=== PATIENT | female | born 1950 | race African-American/Black ===

== ENCOUNTER 2017-01-22 13:03 | Day surgery (SDC) | payer OTHER ==
[~2017-01-22] VITALS: Ht 157.5 cm; Wt 82.2 kg
[~2017-01-22 13:03] MED LIST: CELE100C85 PO; HYDR25TA6 PO; MIRA50TA PO; OMEP40CA3 PO; TOLT4CAP PO
[2017-01-22 13:38] VITALS: Ht 157.5 cm; Wt 82.2 kg
[2017-01-22] MEDS ORDERED: LIDOCAINE 2% (SDV) 5 ML INJ ONE (14:03)
[2017-01-22] MEDS ORDERED: PROPOFOL 40 ML ONE (14:03)
[2017-01-22 14:08] VITALS: BP 133/72; PULSE 82; RESP 11
--- NOTE | 2017-01-22 15:03 | OPR ---
DATE OF OPERATION: 01/22/2017 TITLE OF OPERATION: Colonoscopy ANESTHESIOLOGIST: Dr. Ceja SURGEON: Tyrell Gray MD ANESTHESIA: MAC. POSITION: Left lateral decubitus. INDICATION: This is a 66-year-old woman who came into the office last year with blood per rectum. The patient had not had a colonoscopy in approximately 7 years. I discussed the risks and benefits of a colonoscopy, possibly biopsy including bleeding, infection, damage to surrounding structures, perforation. The patient was cleared by her medical doctor and design engineering technician. We then went on to the GI suite. DESCRIPTION OF PROCEDURE: After obtaining consent, the patient was brought to the GI suite. After induction of anesthesia, the patient was gently placed in left lateral decubitus position. The pressure points were carefully padded. I began with a digital rectal exam which was unremarkable. I then placed a lubricated Olympus colonoscope into the patient's anus and carefully navigated to the patient's cecum. The colon was tortuous and the prep was satisfactory. I identified the cecum by the ileocecal valve and appendiceal orifice. I then slowly retracted the scope through the entirety of the colon. There was no pathology except for some engorged internal hemorrhoids. The scope was then removed and the procedure was terminated. The patient tolerated the procedure well. The patient was transported to the PACU in good condition. Dictated By: TYRELL HYDE/AVA Conf#: [id number] DID#: [id number] CC:Gino JUAN
[2017-01-22 15:32] VITALS: BP 119/69; RESP 20
== END 2017-01-22 16:37 | disposition home or self-care (01) ==
LOC: GIL 13:03
PROVIDERS: ATTEND Surgery
DX: Z12.11 Encounter for screening for malignant neoplasm of colon (principal); I10 Essential (primary) hypertension

== ENCOUNTER 2017-12-23 11:00 | Inpatient (IN) | payer OTHER ==
[~2017-12-23] VITALS: Ht 157.5 cm; Wt 84.2 kg
[2018-07-10] MEDS ORDERED: HYDR25TA6 PO (12:02)
[2018-07-10] MEDS ORDERED: ESOM40CA PO (12:03)
[2018-07-10] MEDS ORDERED: CELE200C PO (12:03)
[2018-07-10] MEDS ORDERED: MIRA50TA PO (12:03)
[2018-07-10] MEDS ORDERED: SIMV20TA PO (12:04)
[2018-07-10] MEDS ORDERED: LORA10TA3 PO (12:04)
[2018-07-10] MEDS ORDERED: MONT10TA24 PO (12:05)
[2018-07-10] MEDS ORDERED: PREG150C PO (12:05)
[2018-10-27 14:26] VITALS: BMI 31.0
[2018-10-29] VITALS (34 sets, daily range): BP systolic 97–142; BP diastolic 52–83; PULSE 52–94; RESP 10–30; Ht 157.5 cm; Wt 84.2 kg
[2018-10-29] MEDS ORDERED: CEFAZOLIN 2 GM/50 ML (PMX) 50 ML IVPB SCH (06:00)
--- NOTE | 2018-10-29 06:30 | PREAC ---
Date/Time of Note Date/Time of Note DATE: 10/29/18 TIME: 06:27 Anesthesia Eval and Record Evaluation Time Pre-Procedure Interview DATE: 10/29/18 TIME: 06:27 Age 68 Sex female NPO: 8 hrs Preoperative diagnosis lumbar stenosis Planned procedure L4 to S1 instrumented fusion Past Medical History Past Medical History: Includes Cardio: HTN, Arrythmia (pvc's) GI: GERD, Obesity Surgery & Anesthesia Issues No known issue Meds Anticoagulation: No Beta Higinio within 24 hr: No Reason Beta Higinio not given: Pt. not on B-Higinio Reported Medications Montelukast Sodium* (Montelukast Sodium*) 10 Mg Tablet, 10 MG PO QHS, #30 TAB 07/10/18 Pregabalin* (Lyrica*) 150 Mg Capsule, 200 MG PO BID, CAP 07/10/18 Loratadine* (Loratadine*) 10 Mg Tablet, 10 MG PO DAILY, #30 TAB 07/10/18 Simvastatin* (Zocor*) 20 Mg Tablet, 20 MG PO QHS, #30 TAB 07/10/18 Celecoxib* (Celebrex*) 200 Mg Capsule, 200 MG PO DAILY, CAP 07/10/18 Mirabegron (Myrbetriq) 50 Mg Tab.er.24h, 50 MG PO DAILY, TAB 07/10/18 Esomeprazole Mag Trihydrate (Nexium) 40 Mg Capsule.dr, 40 MG PO DAILY, #30 CAP 07/10/18 Hydrochlorothiazide* (Hydrochlorothiazide*) 25 Mg Tab, 25 MG PO DAILY, #30 TAB 07/10/18 Current Medications Cefazolin Sodium/ Dextrose 50 ml @ 100 mls/hr ONCE IVPB ; Start 10/29/18 at 06:00; Stop 10/29/18 at 14:00 Meds reviewed: Yes Allergies Coded Allergies: No Known Allergy (Unverified , 07/10/18) Allergies Reviewed: Yes Labs/Studies Labs Reviewed: Reviewed by anesthesiologist Blood Bank Test 10/28/18 16:55 Antibody Screen NEGATIVE Blood Product Summary Counts Blood Type O POSITIVE Crossmatch Red Blood Cells test: N/A Pre-procedure Exam Airway: Adequate mouth opening, Adequate thyromental dist Mallampati: Mallampati II Teeth: Normal Lung: Normal Heart: Normal ASA Physical Status ASA physical status: 2 Emergency: None Planned Anesthetic General/MAC: ETT Planned Pain Management Parenteral pain med Pre-operative Attestations Prior to commencing anesthesia and surgery, the patient was re-evaluated, there was verification of: *The patient's identity *The results of appropriate recent lab work and preoperative vital signs *The above evaluation not changing prior to induction *Anesthetic plan, risk benefits, alternative and complications discussed with patient/family; questions answered; patient/family understands, accepts and wishes to proceed. AMANUEL BROWNE Oct 29, 2018 06:30
[2018-10-29] MEDS ORDERED: GELATIN SIZE 100 SPONGE ONE (06:47)
[2018-10-29] MEDS ORDERED: BUPIVACAINE 0.25% (MPF) 30 ML INJ ONE (06:47)
[2018-10-29] MEDS ORDERED: CEFAZOLIN 1 GM INJ ONE (06:48)
[2018-10-29] MEDS ORDERED: THROMBIN 5000 UNIT VIAL ONE (06:48)
[2018-10-29] MEDS ORDERED: HEPARIN 1000 UNITS/ML 10 ML INJ ONE (06:53)
--- NOTE | 2018-10-29 06:53 | HPN ---
Date/Time of Note Date/Time of Note DATE: 10/29/18 TIME: 06:52 Interval H&P Admission Note Pt. seen H&P reviewed: No system changes LIOR FREEDMAN MD Oct 29, 2018 06:53
[2018-10-29] MEDS ORDERED: PROPOFOL 20 ML ONE (06:55)
[2018-10-29] MEDS ORDERED: ROCURONIUM 50 MG INJ ONE (06:56)
[2018-10-29] MEDS ORDERED: DEXAMETHASONE 4 MG/ML 5 ML INJ ONE (07:05)
[2018-10-29] MEDS ORDERED: PHENYLephrine (100 MCG/ML) 10ML SYG ONE (07:06)
[2018-10-29] MEDS ORDERED: morphine 10 MG INJ ONE (07:41)
[2018-10-29] MEDS ORDERED: GLYCOPYRROLATE 0.4 MG INJ ONE (10:55)
[2018-10-29] MEDS ORDERED: NEOSTIGMINE 3 MG/3 ML SYRINGE ONE (10:55)
[2018-10-29] MEDS ORDERED: KETOROLAC 30 MG INJ IV PRN ×2 (11:00→11:30)
[2018-10-29] MEDS ORDERED: DIPHENHYDRAMINE 50 MG INJ IV PRN ×2 (11:00→11:30)
[2018-10-29] MEDS ORDERED: NALOXONE (0.4 MG/ML) INJ IV PRN ×2 (11:00→12:00)
[2018-10-29] MEDS ORDERED: ONDANSETRON 4 MG INJ IV PRN ×3 (11:00→12:00)
[2018-10-29] MEDS ORDERED: ZOLPIDEM 5 MG TAB PO PRN ×2 (11:00→12:00)
[2018-10-29] MEDS ORDERED: HYDROmorphONE 0.2 MG/ML PCA IV SCH (11:00)
--- NOTE | 2018-10-29 11:25 | PAC ---
Date/Time of Note Date/Time of Note DATE: 10/29/18 TIME: 11:25 Post-Anesthesia Notes Post-Anesthesia Note Last documented vital signs Vital Signs Date Temp Pulse Resp B/P (MAP) Pulse Ox O2 O2 Flow FiO2 Time Delivery Rate 10/29/18 98.5 87 18 129/81 97 Room Air 1125 (97) Activity: WNL Respiratory function: WNL Cardiovascular function: WNL Mental status: Baseline Pain reasonably controlled: Yes Hydration appropriate: Yes Nausea/Vomiting absent: Yes AMANUEL BROWNE Oct 29, 2018 11:25
[2018-10-29] MEDS ORDERED: ONDANSETRON 4 MG INJ ONE (11:27)
[2018-10-29] MEDS ORDERED: HYDROmorphONE 1 MG/5 ML IV SYRINGE IV ONE (11:28)
[2018-10-29] MEDS ORDERED: METOCLOPRAMIDE 10 MG INJ IV PRN (11:30)
[2018-10-29] MEDS ORDERED: FENTAnyl 50 MCG/ML VIAL IV PRN ×3 (11:30)
[2018-10-29] MEDS ORDERED: LABETALOL HCL 20MG INJ IV PRN (11:30)
[2018-10-29] MEDS ORDERED: MEPERIDINE 25 MG INJ IV PRN (11:30)
[2018-10-29] MEDS ORDERED: ALBUTEROL 0.083% (NEB) 2.5 MG/3 ML AMP HHN PRN (11:30)
[2018-10-29] MEDS ORDERED: MIDAZOLAM 1 MG/ML 2 ML INJ IV PRN (11:30)
[2018-10-29] MEDS ORDERED: HYDROmorphONE 1 MG/5 ML IV SYRINGE IV PRN ×3 (11:30)
[2018-10-29] MEDS ORDERED: hydrALAzine 20 MG INJ IV PRN (11:30)
[2018-10-29] MEDS ORDERED: EPHEDrine SULFATE 50 MG/5 ML SYG IV PRN (11:30)
[2018-10-29] MEDS ORDERED: FENTAnyl 50 MCG/ML VIAL ONE (11:39)
[2018-10-29] MEDS ORDERED: HYDROmorphONE 0.2 MG/ML PCA ONE (11:39)
[2018-10-29] MEDS: DEXTROSE 5%-0.45% NACL 1,000 ML IV SCH ×2 (11:45→18:50)
--- NOTE | 2018-10-29 11:56 | SIPON ---
Date/Time of Note Date/Time of Note DATE: 10/29/18 TIME: 11:49 Operative Report Preoperative Diagnosis Severe spinal stenosis at L4 and L5 Spondylolisthesis at L5-S1 Postoperative Diagnosis Same Operation/Procedure Performed Central decompressive laminectomy at L4 Central decompressive laminectomy at L5 Medial facetectomy and foraminotomy L4-5 and L5-S1 bilaterally Cosmetic wound closure (12 cm) Multiple lateral fluoroscopic images (3) Intraoperative nerve monitoring (4 hours) Surgeon see signature line workers compensation claims assistant Kelin MCKAYA Anesthesia: general Estimated blood loss: 100 - 150 ml's Transfusion Required none Specimen Bone L4 and L5 Grafts/Implants none Complications none LIOR FREEDMAN MD Oct 29, 2018 11:56
[2018-10-29] MEDS ORDERED: DIPHENHYDRAMINE 50 MG CAP PO PRN (12:00)
[2018-10-29] MEDS ORDERED: ACETAMINOPHEN 325 MG TAB PO PRN (12:00)
[2018-10-29] MEDS ORDERED: NACL 0.9% 3 ML SYG IV SCH (12:00)
[2018-10-29] MEDS ORDERED: DIAZEPAM 5 MG TAB PO PRN (12:00)
[2018-10-29] MEDS ORDERED: TRIMETHOBENZAMIDE 100 MG/ML VIAL IM PRN (12:00)
[2018-10-29] MEDS ORDERED: BETHANECHOL 25 MG TAB PO PRN (12:00)
[2018-10-29] MEDS ORDERED: DIAZEPAM 5 MG/ML SYG IM PRN (12:00)
[2018-10-29] MEDS ORDERED: AL HYDROX/MG HYDROX/SIMETH 30 ML CUP PO PRN (12:00)
[2018-10-29] MEDS ORDERED: PROCHLORPERAZINE 10 MG TAB PO PRN (12:00)
[2018-10-29] MEDS ORDERED: HYDROCODONE/APAP (5/325) TAB PO PRN ×2 (12:00)
[2018-10-29] MEDS: CEFAZOLIN 1 GM/50 ML (PMX) 50 ML IVPB SCH ×3 (12:34→22:36)
--- NOTE | 2018-10-29 14:28 | OPR ---
DATE OF OPERATION: 10/29/2018 PREOPERATIVE DIAGNOSES: 1. Severe spinal stenosis at L4 and L5. 2. Spondylolisthesis at L5 to S1. POSTOPERATIVE DIAGNOSES: 1. Severe spinal stenosis at L4 and L5. 2. Spondylolisthesis at L5 to S1. OPERATIVE PROCEDURES: 1. Central decompressive laminectomy at L4. 2. Central decompressive laminectomy at L5. 3. Medial facetectomy and foraminotomy at L4 to L5 and L5 to S1 bilaterally. 4. Cosmetic wound closure (12 cm). 5. Lateral localizing lumbar fluoroscopic imaging (3 images). 6. Intraoperative nerve monitoring (4 hours). SURGEON: Ascencion Nunez MD SENIOR CYTOGENETIC TECHNOLOGIST: KELVIN Boston ANESTHESIA: Endotracheal. ANESTHESIOLOGIST: Dr. Duff ESTIMATED BLOOD LOSS: 125 mL with 150 mL of Cell Saver blood return. COMPLICATIONS: None. PERTINENT HISTORY AND PHYSICAL: This is a 68-year-old female with severe chronic back and bilateral leg pain which has been unrelieved by conservative management. She has undergone a number of diagnos tic studies including an MRI of the lumbar spine which demonstrated a grade I spondylolisthesis at L5 to S1 with severe stenosis at L4 and L5. Treatment options were discussed with the patient. She el ected to proceed with surgery. OPERATIVE FINDINGS: At surgery, severe stenosis at L4 and L5 was confirmed. Original operative plan was to perform a 2-level transforaminal lumbar interbody fusion. However during the decompression, it was noted that the patient's L4 to L5 and L5 to S1 segments were entirely stable and was therefore elected to complete the decompression and abort the fusion. The intraoperative nerve monitoring rev ealed decrease in the L2 potentials bilaterally of 20%, the L3 potentials bilaterally of 20%, the L4 potentials bilaterally of 40%, the L5 potential on the left of 60%, the L5 potential on the right of 30%, the S1 potential on the left of 50%, the S1 potential on the right of 40%. These all returned t o normal at the completion of the surgery. OPERATIVE PROCEDURE IN DETAILS: With the patient in supine position after satisfactory induction of general endotracheal anesthesia by Dr. Duff, the patient was turned to the prone position onto the [facility] frame atop the OSI spinal table. All pressure points were carefully padded. The ba ck was prepped and draped in usual sterile fashion. Athrombic pumps were applied to the legs below t he knees to prevent venous stasis during and after procedure. An indwelling Valdivia catheter was also placed preoperatively to facilitate bladder drainage during and after procedure. Two spinal needles were placed next to what was felt to be the L4 and L5 spinous processes, lateral roentgenogram (fluor oscopic image) was taken to confirm anatomic localization. A 12 cm incision was then carried midline from L4 to the sacrum through skin and subcutaneous tissue to deep fascia after skin was infiltrated with 0.25% Marcaine without epinephrine for postoperative analgesia. Superficial retractors were pl aced and hemostasis was secured with electrocautery. The fascia was incised in midline with hot knif e and bilateral subperiosteal dissection was carried out from L4 to sacrum. Deep retractors were zia argenis and deep hemostasis was secured with cautery. A second and third fluoroscopic image was taken wi th Darrell clamp placed first on the L4 and L3 spinous processes and finally on the L5 spinous process . Attempt to move the L4 and L5 vertebral bodies with Darrell clamp revealed essentially no motion at L4 to L5 or L5 to S1 and it was therefore elected to abort the fusion that we had been planned and t o proceed with just a decompressive laminectomy. A Luba right-angle bone rongeur was then used to remove the spinous process of L4 and L5 and Leksell rongeur, Kerrison punches were then used to comp lete the laminectomies at L4 and L5. The medial facetectomy and foraminotomy was then carried out bi laterally using small hand osteotome and mallet, Kerrison punches and curettes after the operating mi croscope was moved into place. The L4, L5 and S1 nerve roots were selectively identified and decompr essed throughout their intraspinal course. The anesthesiologist was asked to perform a Valsalva coco uver at 40 mmHg and no spinal fluid leak was noted. The wound was then closed in layers over 2 mediu m Hemovac drains, one below the fascia, one above the fascia using #1 Vicryl Stratafix sutures on the deep paralumbar musculature and deep fascia of back, 2-0 Stratafix sutures on the subcutaneous tissu e and a 4-0 Vicryl subcuticular cosmetic closing suture on the skin. Dermabond and sterile compressi ve dressings were applied. The patient having tolerated procedure well, was then turned to the supin e position onto her bed and extubated by Dr. Duff. She was transported to recovery room in satisfact ory condition. At the conclusion of procedure, sponge, instrument and needle counts were all correct . NEED FOR NEWSPAPER EDITOR MANAGING: During this spinal surgical procedure, my virtual assistant for advertisers was used to retract and protect the spinal nerves and dural sac. My virtual assistant for advertisers also employed the suction catheters to parvez edwin blood from the surgical field to improve visualization of the neural structures. The virtual assistant for advertisers was medically necessary to facilitate the completion of the surgery in a safe and expeditious manner. [facility] [place] regulations, as well as hospital bylaws, preclude the use of non-licensed health care personnel such as operating room technicians, to perform these functions. Throughout the procedure, neural monitoring was carried out by [employer] including EMG, SSEP a nd MEP monitoring of the L2, L3, L4, L5 and S1 nerve roots bilaterally along with spinal cord potenti als. These were interpreted in real time by Dr. Felipe Marcelo. Dictated By: ASCENCION NUNEZ MD TM/NTS Conf#: [id number] DID#: [id number] CC: TAMERA BENTLEY MD;*EndCC*
[2018-10-29] MEDS: MYRBETRIQ IS NON FORMULARY...PLEASE CONSIDER AN ORDER TO USE PATIENT'S OWN MED XX SCH (16:30)
--- NOTE | 2018-10-29 17:50 | CONS ---
DATE OF ADMISSION: 10/29/2018 DATE OF CONSULTATION: POSTOPERATIVE INTERNAL MEDICINE CONSULTATION The patient had surgery with Dr. Ascencion Freedman on 10/29/2018. Consultation requested by Dr. Ascencion Freedman for medical evaluation and postop medical followup of a [age]-year-old woman with several medical problems. Thank you, Dr. Freedman, for allowing me to participate in care of this patient. HISTORY OF PRESENT ILLNESS: Beata Tobin is a 68-year-old woman, who is currently in the recovery r oom postop decompressive laminectomy at L4-L5 for spinal stenosis and also a procedure on L4-L5, L5-S 1. The patient was taken to the recovery room, is stable and is alert and answers all questions quit e appropriately. PAST MEDICAL AND SURGICAL HISTORY: Positive for the following: She has not had any medical hospital izations; however, has had multiple surgeries, which include 2 C-sections, arthroscopic knee surgery, right and left; arthroscopic left shoulder partially open for a rotator cuff, right elbow surgery as well as appendectomy. She has had no medical hospitalizations to speak of. MEDICATIONS: She is currently taking the following medications Loratadine 10 mg daily, simvastatin 2 0 mg a day, Celebrex 200 mg a day, Lyrica 200 mg b.i.d., hydrochlorothiazide 25 mg daily, Singulair 1 0 mg a day, Nexium 40 mg a day, Myrbetriq ER 50 mg tablets once a day as well. ALLERGIES: SHE HAS NO KNOWN ALLERGIES TO ANY MEDICATIONS. SOCIAL HISTORY: The patient is , has 4 daughters and 3 sons and one great grandchild. She q uit smoking 14 years ago. Does not drink alcohol currently and is not using any drugs currently. FAMILY HISTORY: She denies any family history of diabetes, heart, cancer, hypertension or stroke. O ne of her grandparents lived to be over 100. REVIEW OF SYSTEMS: HEENT: Unremarkable. CARDIORESPIRATORY: Occasional wheezing or asthma. GASTROINTESTINAL: Has signs and symptoms of gastroesophageal reflux disease. GENITOURINARY: Has bladder issues for which she takes Myrbetriq. GYNECOLOGIC: Postmenopause. MUSCULOSKELETAL: Positive for back and knee pain, hopefully the back pain being resolved. PHYSICAL EXAM REVEALED THE FOLLOWING: VITAL SIGNS: The patient's blood pressure was 137/62, pulse was 72 and regular, respirations were 18 , temperature 98, O2 saturation 95% on nasal cannula, somewhat on, somewhat off periodically. HEENT: Grossly unremarkable. Eyes: Pupils were equal. Nose was negative. Mouth revealed fair oral hygi sam. NECK: Supple without any rigidity. Trachea was midline. Thyroid was unremarkable. Neck veins flat . CHEST: Symmetrical. LUNGS: Clear. HEART: Revealed a regular rhythm without any significant abnormalities. ABDOMEN: Soft. Bowel sounds were noted. EXTREMITIES: Not reveal any obvious clubbing, edema or cyanosis. IMPRESSION: 1. Status post lumbar spine surgery. 2. Hyperlipidemia. 3. Asthma/allergy. 4. Chronic pain syndrome. 5. Hypertension. 6. Gastroesophageal reflux disease. DISCUSSION: Plan is to reorder the patient's preop medications and will manage her blood pressure an d other issues while she is at [facility]. The patient currently postop and is quite stable . Blood pressure is well controlled. Thank you again, Dr. Freedman, for allowing us to participate in the care of this patient and we will follow her along with you. Dictated By: TAMERA BENTLEY MD SS/NTS Conf#: [id number] DID#: [id number] CC: ASCENCION FREEDMAN MD;*EndCC*
[2018-10-29] MEDS: RANITIDINE 150 MG TAB PO SCH (22:34)
[2018-10-29] MEDS: ATORVASTATIN 10 MG TAB PO SCH (22:35)
[2018-10-29] MEDS: MONTELUKAST 10 MG TAB PO SCH (22:35)
[2018-10-29] MEDS: PREGABALIN 100 MG CAP PO SCH (22:35)
[2018-10-30 00:05] VITALS: BP 114/53; PULSE 79; RESP 18
[2018-10-30] MEDS: MYRBETRIQ IS NON FORMULARY...PLEASE CONSIDER AN ORDER TO USE PATIENT'S OWN MED XX SCH ×3 (00:30→16:30)
[2018-10-30] MEDS: CEPASTAT LOZENGE MT PRN ×2 (05:11→15:23)
[2018-10-30] MEDS: PANTOPRAZOLE (EC) 40 MG TAB PO SCH (05:11)
[2018-10-30] MEDS: CEFAZOLIN 1 GM/50 ML (PMX) 50 ML IVPB SCH (05:11)
[2018-10-30] MEDS: DEXTROSE 5%-0.45% NACL 1,000 ML IV SCH ×2 (05:50→17:44)
--- NOTE | 2018-10-30 07:15 | PN ---
Date/Time of Note Date/Time of Note DATE: 10/30/18 TIME: 07:13 Assessment/Plan Lines/Catheters IV Catheter Type (from Nrsg): Saline Lock Valdivia in Place (from Nrsg): Yes Subjective 24 Hr Interval Summary The patient is postop day #1 following a decompressive laminectomy at L4 and L5. She is complaining of moderate low back pain. She is afebrile. A.m. lab work is unremarkable with exception of mild postoperative anemia (hemoglobin 9.7). Neurovascular structures are intact distally. Her Hemovac output was 210 cc since surgery and will be left in place. A Valdivia catheter is in place and will be discontinued this morning. She will be mobilized as tolerated by physical therapy. Exam/Review of Systems Vital Signs Vitals Vital Signs Date Temp Pulse Resp B/P (MAP) Pulse Ox O2 O2 Flow FiO2 Time Delivery Rate 10/30/18 16 05:59 10/30/18 98.1 79 114/53 93 00:05 (73) 10/29/18 Room Air 18:26 10/29/18 2.0 12:17 Intake and Output 10/29/18 10/29/18 10/30/18 1515:00 23:00 07:00 IntakeIntake Total 3320 ml 150 ml 1100 ml OutputOutput Total 890 ml 100 ml 3290 ml BalanceBalance 2430 ml 50 ml -2190 ml Results Result Diagram: 10/30/18 0452 10/30/18 0452 LIOR FREEDMAN MD Oct 30, 2018 07:15
[2018-10-30] MEDS ORDERED: OXYCODONE/ACETAMINOPHEN (5/325) TAB PO PRN ×2 (08:00)
[2018-10-30] MEDS ORDERED: BETHANECHOL 25 MG TAB PO PRN (08:00)
[2018-10-30 08:04] VITALS: BP 120/66; PULSE 69; RESP 18
[2018-10-30] MEDS ORDERED: NON-FORMULARY/PATIENT OWN MED (Mirabegron (Myrbetriq) 50 MG) PO SCH (09:00)
[2018-10-30] MEDS: FERROUS SULFATE (EC) 325 MG TAB PO SCH ×3 (10:49→21:00)
[2018-10-30] MEDS: RANITIDINE 150 MG TAB PO SCH ×2 (10:49→21:00)
[2018-10-30] MEDS: HYDROCHLOROTHIAZIDE 25 MG TAB PO SCH (10:55)
[2018-10-30] MEDS: LORATADINE 10 MG TAB PO SCH (10:56)
[2018-10-30] MEDS: DOCUSATE SODIUM 100 MG CAP PO SCH ×2 (10:57→20:59)
[2018-10-30] MEDS: ASCORBIC ACID 500 MG TAB PO SCH ×2 (10:57→20:58)
[2018-10-30] MEDS: PREGABALIN 100 MG CAP PO SCH ×2 (10:58→20:59)
--- NOTE | 2018-10-30 11:37 | CONS ---
Consult Date/Type/Reason Admit Date/Time Oct 29, 2018 at 05:24 Initial Consult Date 10/29/2018 Type of Consultation: internal medicine Reason for Consultation post-op medical evaluation and management Requesting Provider: LIOR FREEDMAN MD Date/Time of Note DATE: 10/30/18 TIME: 11:32 Subjective had pain last night otherwise doing well Objective Vitals Vital Signs Date Temp Pulse Resp B/P (MAP) Pulse Ox O2 O2 Flow FiO2 Time Delivery Rate 10/30/18 18 11:16 10/30/18 97.8 69 120/66 98 08:04 (84) 10/29/18 Room Air 18:26 10/29/18 2.0 12:17 Intake and Output 10/29/18 10/29/18 10/30/18 1515:00 23:00 07:00 IntakeIntake Total 3320 ml 150 ml 1100 ml OutputOutput Total 890 ml 100 ml 3290 ml BalanceBalance 2430 ml 50 ml -2190 ml Exam Vital signs stable HEENT negative lungs clear heart regular rhythm abdomen soft Results/Medications Result Diagram: 10/30/18 0452 10/30/18 0452 Results 24 hrs Laboratory Tests Test 10/30/18 04:52 10/30/18 08:00 Hemoglobin 9.7 #L Hematocrit 29.3 #L Sodium Level 140 Potassium Level 3.7 Chloride Level 103 Carbon Dioxide Level 29 Anion Gap 8 Blood Urea Nitrogen 17 Creatinine 1.02 H Est Glomerular Filtrat Rate mL/min > 60 Glucose Level 113 Calcium Level 8.6 Urine Color STRAW Urine Clarity CLEAR Urine pH 6.0 Urine Specific Walls 1.006 Urine Ketones NEGATIVE Urine Nitrite NEGATIVE Urine Bilirubin NEGATIVE Urine Urobilinogen NEGATIVE Urine Leukocyte Esterase NEGATIVE Urine Microscopic RBC 2 Urine Microscopic WBC 1 Urine Mucus FEW A Urine Hemoglobin 1+ H Urine Glucose NEGATIVE Urine Total Protein NEGATIVE Home Meds Reported Medications Montelukast Sodium* (Montelukast Sodium*) 10 Mg Tablet, 10 MG PO QHS, #30 TAB 07/10/18 Pregabalin* (Lyrica*) 150 Mg Capsule, 200 MG PO BID, CAP 07/10/18 Loratadine* (Loratadine*) 10 Mg Tablet, 10 MG PO DAILY, #30 TAB 07/10/18 Simvastatin* (Zocor*) 20 Mg Tablet, 20 MG PO QHS, #30 TAB 07/10/18 Celecoxib* (Celebrex*) 200 Mg Capsule, 200 MG PO DAILY, CAP 07/10/18 Mirabegron (Myrbetriq) 50 Mg Tab.er.24h, 50 MG PO DAILY, TAB 07/10/18 Esomeprazole Mag Trihydrate (Nexium) 40 Mg Capsule.dr, 40 MG PO DAILY, #30 CAP 07/10/18 Hydrochlorothiazide* (Hydrochlorothiazide*) 25 Mg Tab, 25 MG PO DAILY, #30 TAB 07/10/18 Medications Current Medications Naloxone HCl (Narcan) 0.2 mg PRN PRN IV RR < 8; Start 10/29/18 at 11:00 Hydromorphone HCl (Dilaudid STAINED GLASS ARTIST) Q4PCA IV Last administered on 10/29/18at 12:05; Admin Dose 6 MG; Start 10/29/18 at 11:00; Stop 11/01/18 at 09:30 Ketorolac Tromethamine (Toradol) 30 mg Q6H PRN IV .PAIN; Start 10/29/18 at 11:00; Stop 11/01/18 at 10:59 Ondansetron HCl (Zofran Inj) 4 mg Q6H PRN IV NAUSEA AND/OR VOMITING; Start 10/29/18 at 11:00 Zolpidem Tartrate (Ambien) 5 mg HS MAY REPEAT X 1 PRN PO .INSOMNIA; Start 10/29/18 at 11:00 Diphenhydramine HCl (Benadryl) 25 mg Q6H PRN IV .ITCHING; Start 10/29/18 at 11:00 Miscellaneous Information 1. Discontinue STAINED GLASS ARTIST... STAINED GLASS ARTIST IV ; Start 10/29/18 at 11:00 Miscellaneous Information 1. Discontinue STAINED GLASS ARTIST... STAINED GLASS ARTIST IV ; Start 10/29/18 at 11:00 Dextrose/Sodium Chloride 1,000 ml @ 100 mls/hr Q10H IV Last administered on 10/30/18at 05:50; Admin Dose 100 MLS/HR; Start 10/29/18 at 11:45 Acetaminophen/ Hydrocodone Bitart ([place] (5/325)) 1 tab Q4H PRN PO PAIN LEVEL 1-3; Start 10/29/18 at 12:00 Acetaminophen/ Hydrocodone Bitart ([place] (5/325)) 2 tab Q4H PRN PO PAIN LEVEL 4-6 Last administered on 10/30/18 05:11; Admin Dose 2 TAB; Start 10/29/18 at 12:00 Zolpidem Tartrate (Ambien) 5 mg HS PRN PO .INSOMNIA; Start 10/29/18 at 12:00 Prochlorperazine (Compazine) 10 mg Q4H PRN PO NAUSEA/VOMITING; Start 10/29/18 at 12:00 Trimethobenzamide HCl (Tigan) 200 mg Q4H PRN IM NAUSEA/VOMITING; Start 10/29/18 at 12:00 Ondansetron HCl (Zofran Inj) 4 mg Q6H PRN IV NAUSEA/VOMITING; Start 10/29/18 at 12:00 Al Hydrox/Mg Hydrox/Simethicone (Mag-Al Plus) 15 ml Q4H PRN PO .CONSTIPATION; Start 10/29/18 at 12:00 Docusate Sodium (Colace) 100 mg BID PO Last administered on 10/30/18 10:57; Admin Dose 100 MG; Start 10/30/18 at 09:00 Acetaminophen (Tylenol Tab) 650 mg Q4H PRN PO TEMP GREATER THAN 101F OR JAVED; Start 10/29/18 at 12:00 Ascorbic Acid (Vitamin C) 1,000 mg BID PO Last administered on 10/30/18 10:57; Admin Dose 1,000 MG; Start 10/30/18 at 09:00 Ferrous Sulfate (Ferrous Sulfate (Ec)) 325 mg TID PO Last administered on 10/30/18 10:49; Admin Dose 325 MG; Start 10/30/18 at 09:00 Ranitidine HCl (Zantac) 150 mg BID PO Last administered on 10/30/18 10:49; Admin Dose 150 MG; Start 10/29/18 at 21:00 Diazepam (Valium) 5 mg Q4H PRN PO .MUSCLE SPASM Last administered on 10/30/18 01:15; Admin Dose 5 MG; Start 10/29/18 at 12:00 Diazepam (Valium) 5 mg Q4H PRN IM .MUSCLE SPASM; Start 10/29/18 at 12:00 Phenol (Cepastat Lozenge) 1 lozenge PRN PRN MT .SORE THROAT Last administered on 3/21/19at 05:11; Admin Dose 1 LOZENGE; Start 10/29/18 at 12:00 Diphenhydramine HCl (Benadryl) 50 mg Q6H PRN PO .PRURITUS; Start 10/29/18 at 12:00 IV Flush (NS 3 ml) 3 ml PER PROTOCOL IV ; Start 10/29/18 at 12:00 Naloxone HCl (Narcan) 0.2 mg Q2M PRN IV RR 8 BREATHS/MIN OR LESS; Start 10/29/18 at 12:00 Hydrochlorothiazide (Hydrochlorothiazide) 25 mg DAILY PO Last administered on 10/30/18at 10:55; Admin Dose 25 MG; Start 10/30/18 at 09:00 Loratadine (Claritin) 10 mg DAILY PO Last administered on 10/30/18at 10:56; Admin Dose 10 MG; Start 10/30/18 at 09:00 Montelukast Sodium (Singulair) 10 mg QHS PO Last administered on 10/29/18at 22:35; Admin Dose 10 MG; Start 10/29/18 at 21:00 Pregabalin (Lyrica) 200 mg BID PO Last administered on 10/30/18at 10:58; Admin Dose 200 MG; Start 10/29/18 at 21:00 Pantoprazole (Protonix Tab) 40 mg DAILY@06 PO Last administered on 10/30/18at 05:11; Admin Dose 40 MG; Start 10/30/18 at 06:00 Miscellaneous Information 50 mg DAILY PO ; Start 10/30/18 at 09:00; Status UNV Atorvastatin Calcium (Lipitor) 10 mg DAILY@21 PO Last administered on 10/29/18at 22:35; Admin Dose 10 MG; Start 10/29/18 at 21:00 Miscellaneous Information (*Order Clarification Bulletin) MYRBETRIQ IS NON FORMULARY...PLEASE CONSIDER AN OR... Q8H XX ; Start 10/29/18 at 16:30 Bethanechol Chloride (Urecholine) 25 mg PRN PRN PO UNABLE TO VOID; Start 10/30/18 at 08:00 Oxycodone/ Acetaminophen (Percocet (5/ 325)) 1 tab Q4H PRN PO PAIN LEVEL 1-6; Start 10/30/18 at 08:00 Oxycodone/ Acetaminophen (Percocet (5/ 325)) 2 tab Q4H PRN PO PAIN LEVEL 7-10 Last administered on 10/30/18at 10:56; Admin Dose 2 TAB; Start 10/30/18 at 08:00 Assessment/Plan Hospital Course (Demo Recall) patient post-op lumbar spine surgery doing relatively well Assessment/Plan (Daily) pre-op medications continued will follow with you thank you TAMERA Laws MD Oct 30, 2018 11:37
[2018-10-30 13:48] VITALS: BP 104/50; PULSE 74; RESP 19
[2018-10-30] MEDS: OXYCODONE/ACETAMINOPHEN (10/325) TAB PO PRN ×3 (15:10→23:44)
[2018-10-30 20:35] VITALS: BP 119/59; PULSE 95; RESP 18
[2018-10-30] MEDS: ATORVASTATIN 10 MG TAB PO SCH (20:58)
[2018-10-30] MEDS: MONTELUKAST 10 MG TAB PO SCH (20:59)
[2018-10-31] MEDS: MYRBETRIQ IS NON FORMULARY...PLEASE CONSIDER AN ORDER TO USE PATIENT'S OWN MED XX SCH ×3 (00:30→16:30)
[2018-10-31] MEDS: RANITIDINE 150 MG TAB PO SCH ×2 (02:14→09:00)
[2018-10-31 02:30] VITALS: BP 112/54; PULSE 85; RESP 18
[2018-10-31] MEDS: DEXTROSE 5%-0.45% NACL 1,000 ML IV SCH ×2 (03:45→13:45)
[2018-10-31] MEDS: PANTOPRAZOLE (EC) 40 MG TAB PO SCH (07:05)
--- NOTE | 2018-10-31 07:12 | PN ---
Date/Time of Note Date/Time of Note DATE: 10/31/18 TIME: 07:11 Assessment/Plan Lines/Catheters IV Catheter Type (from Nrsg): Peripheral IV Valdivia in Place (from Nrsg): Yes Subjective 24 Hr Interval Summary The patient is postop day #2 following a decompressive laminectomy at L4 and L5. She is resting comfortably in bed. Neurovascular structures are intact dist ally. Hemovac was discontinued yesterday afternoon, and her wound was clean and dry. Her incision was redressed. She is afebrile. She was not cleared for discharge by physical therapy yesterday, but I anticipate she will be cleared today. She has been given strict discharge precautions and instructions as well as follow-up arrangements. The nurses reports she has refused a thrombotic pumps, and she was advised of the risks. Exam/Review of Systems Vital Signs Vitals Vital Signs Date Temp Pulse Resp B/P (MAP) Pulse Ox O2 O2 Flow FiO2 Time Delivery Rate 10/31/18 99.2 85 18 112/54 98 02:30 (73) 10/29/18 Room Air 18:26 10/29/18 2.0 12:17 Intake and Output 10/30/18 10/30/18 10/31/18 1414:59 22:59 06:59 IntakeIntake Total 600 ml 500 ml 360 ml OutputOutput Total 945 ml BalanceBalance -345 ml 500 ml 360 ml Results Result Diagram: 10/30/18 0452 10/30/18 0452 LIOR FREEDMAN MD Oct 31, 2018 07:12
[2018-10-31 07:29] VITALS: BP 121/62; PULSE 82; RESP 19
--- NOTE | 2018-10-31 07:47 | CONS ---
Consult Date/Type/Reason Admit Date/Time Oct 29, 2018 at 05:24 Initial Consult Date 10/29/2018 Type of Consultation: internal medicine Reason for Consultation post-op medical f/u and management Requesting Provider: LIOR FREEDMAN MD Date/Time of Note DATE: 10/31/18 TIME: 07:43 Subjective feels better would like to go home no complaints Objective Vitals Vital Signs Date Temp Pulse Resp B/P (MAP) Pulse Ox O2 O2 Flow FiO2 Time Delivery Rate 10/31/18 98.2 82 19 121/62 96 07:29 (81) 10/29/18 Room Air 18:26 10/29/18 2.0 12:17 Intake and Output 10/30/18 10/30/18 10/31/18 1515:00 23:00 07:00 IntakeIntake Total 600 ml 500 ml 360 ml OutputOutput Total 945 ml BalanceBalance -345 ml 500 ml 360 ml Exam vital signs stable HEENT negative lungs clear heart regular rhythm Results/Medications Result Diagram: 10/30/18 0452 10/30/18 0452 Results 24 hrs Laboratory Tests Test 10/30/18 08:00 Urine Color STRAW Urine Clarity CLEAR Urine pH 6.0 Urine Specific [place] 1.006 Urine Ketones NEGATIVE Urine Nitrite NEGATIVE Urine Bilirubin NEGATIVE Urine Urobilinogen NEGATIVE Urine Leukocyte Esterase NEGATIVE Urine Microscopic RBC 2 Urine Microscopic WBC 1 Urine Mucus FEW A Urine Hemoglobin 1+ H Urine Glucose NEGATIVE Urine Total Protein NEGATIVE Home Meds Reported Medications Montelukast Sodium* (Montelukast Sodium*) 10 Mg Tablet, 10 MG PO QHS, #30 TAB 07/10/18 Pregabalin* (Lyrica*) 150 Mg Capsule, 200 MG PO BID, CAP 07/10/18 Loratadine* (Loratadine*) 10 Mg Tablet, 10 MG PO DAILY, #30 TAB 07/10/18 Simvastatin* (Zocor*) 20 Mg Tablet, 20 MG PO QHS, #30 TAB 07/10/18 Celecoxib* (Celebrex*) 200 Mg Capsule, 200 MG PO DAILY, CAP 07/10/18 Mirabegron (Myrbetriq) 50 Mg Tab.er.24h, 50 MG PO DAILY, TAB 07/10/18 Esomeprazole Mag Trihydrate (Nexium) 40 Mg Capsule.dr, 40 MG PO DAILY, #30 CAP 07/10/18 Hydrochlorothiazide* (Hydrochlorothiazide*) 25 Mg Tab, 25 MG PO DAILY, #30 TAB 07/10/18 Medications Current Medications Naloxone HCl (Narcan) 0.2 mg PRN PRN IV RR < 8; Start 10/29/18 at 11:00 Ketorolac Tromethamine (Toradol) 30 mg Q6H PRN IV .PAIN; Start 10/29/18 at 11:00; Stop 11/01/18 at 10:59 Ondansetron HCl (Zofran Inj) 4 mg Q6H PRN IV NAUSEA AND/OR VOMITING; Start 10/29/18 at 11:00 Zolpidem Tartrate (Ambien) 5 mg HS MAY REPEAT X 1 PRN PO .INSOMNIA; Start 10/29/18 at 11:00 Diphenhydramine HCl (Benadryl) 25 mg Q6H PRN IV .ITCHING; Start 10/29/18 at 11:00 Miscellaneous Information 1. Discontinue JUNIOR PHP DEVELOPER... JUNIOR PHP DEVELOPER IV ; Start 10/29/18 at 11:00 Miscellaneous Information 1. Discontinue JUNIOR PHP DEVELOPER... JUNIOR PHP DEVELOPER IV ; Start 10/29/18 at 11:00 Dextrose/Sodium Chloride 1,000 ml @ 100 mls/hr Q10H IV Last administered on 10/30/18at 05:50; Admin Dose 100 MLS/HR; Start 10/29/18 at 11:45 Zolpidem Tartrate (Ambien) 5 mg HS PRN PO .INSOMNIA; Start 10/29/18 at 12:00 Prochlorperazine (Compazine) 10 mg Q4H PRN PO NAUSEA/VOMITING; Start 10/29/18 at 12:00 Trimethobenzamide HCl (Tigan) 200 mg Q4H PRN IM NAUSEA/VOMITING; Start 10/29/18 at 12:00 Ondansetron HCl (Zofran Inj) 4 mg Q6H PRN IV NAUSEA/VOMITING; Start 10/29/18 at 12:00 Al Hydrox/Mg Hydrox/Simethicone (Mag-Al Plus) 15 ml Q4H PRN PO .CONSTIPATION; Start 10/29/18 at 12:00 Docusate Sodium (Colace) 100 mg BID PO Last administered on 10/30/18at 20:59; Admin Dose 100 MG; Start 10/30/18 at 09:00 Acetaminophen (Tylenol Tab) 650 mg Q4H PRN PO TEMP GREATER THAN 101F OR JAVED; Start 10/29/18 at 12:00 Ascorbic Acid (Vitamin C) 1,000 mg BID PO Last administered on 10/30/18at 20:58; Admin Dose 1,000 MG; Start 10/30/18 at 09:00 Ferrous Sulfate (Ferrous Sulfate (Ec)) 325 mg TID PO Last administered on 10/30/18 15:10; Admin Dose 325 MG; Start 10/30/18 at 09:00 Ranitidine HCl (Zantac) 150 mg BID PO Last administered on 10/31/18 02:14; Adm in Dose 150 MG; Start 10/29/18 at 21:00 Diazepam (Valium) 5 mg Q4H PRN PO .MUSCLE SPASM Last administered on 10/30/18 01:15; Admin Dose 5 MG; Start 10/29/18 at 12:00 Diazepam (Valium) 5 mg Q4H PRN IM .MUSCLE SPASM; Start 10/29/18 at 12:00 Phenol (Cepastat Lozenge) 1 lozenge PRN PRN MT .SORE THROAT Last administered on 10/30/18 15:23; Admin Dose 1 LOZENGE; Start 10/29/18 at 12:00 Diphenhydramine HCl (Benadryl) 50 mg Q6H PRN PO .PRURITUS; Start 10/29/18 at 12:00 IV Flush (NS 3 ml) 3 ml PER PROTOCOL IV ; Start 10/29/18 at 12:00 Naloxone HCl (Narcan) 0.2 mg Q2M PRN IV RR 8 BREATHS/MIN OR LESS; Start 10/29/18 at 12:00 Hydrochlorothiazide (Hydrochlorothiazide) 25 mg DAILY PO Last administered on 10/30/18 10:55; Admin Dose 25 MG; Start 10/30/18 at 09:00 Loratadine (Claritin) 10 mg DAILY PO Last administered on 10/30/18 10:56; Admin Dose 10 MG; Start 10/30/18 at 09:00 Montelukast Sodium (Singulair) 10 mg QHS PO Last administered on 10/30/18at 20:59; Admin Dose 10 MG; Start 10/29/18 at 21:00 Pregabalin (Lyrica) 200 mg BID PO Last administered on 10/30/18at 20:59; Admin Dose 200 MG; Start 10/29/18 at 21:00 Pantoprazole (Protonix Tab) 40 mg DAILY@06 PO Last administered on 10/31/18at 07:05; Admin Dose 40 MG; Start 10/30/18 at 06:00 Miscellaneous Information 50 mg DAILY PO ; Start 10/30/18 at 09:00; Status UNV Atorvastatin Calcium (Lipitor) 10 mg DAILY@21 PO Last administered on 10/30/18at 20:58; Admin Dose 10 MG; Start 10/29/18 at 21:00 Miscellaneous Information (*Order Clarification Bulletin) MYRBETRIQ IS NON FORMULARY...PLEASE CONSIDER AN OR... Q8H XX ; Start 10/29/18 at 16:30 Bethanechol Chloride (Urecholine) 25 mg PRN PRN PO UNABLE TO VOID; Start 10/30/18 at 08:00 Oxycodone/ Acetaminophen (Percocet (5/ 325)) 1 tab Q4H PRN PO PAIN LEVEL 1-6; Start 10/30/18 at 08:00 Oxycodone/ Acetaminophen (Endocet (10/ 325)) 1 tab Q4H PRN PO PAIN LEVEL 7-10 Last administered on 10/30/18at 23:44; Admin Dose 1 TAB; Start 10/30/18 at 12:00 Assessment/Plan Hospital Course (Demo Recall) patient post-op lumbar spine surgery doing relatively well Assessment/Plan (Daily) patient medically stable plan per [facility] TAMERA BENTLEY MD Oct 31, 2018 07:47
[2018-10-31] MEDS: FERROUS SULFATE (EC) 325 MG TAB PO SCH ×2 (09:00→12:30)
[2018-10-31] MEDS: OXYCODONE/ACETAMINOPHEN (10/325) TAB PO PRN ×2 (09:51→14:09)
[2018-10-31] MEDS: HYDROCHLOROTHIAZIDE 25 MG TAB PO SCH (09:54)
[2018-10-31] MEDS: DOCUSATE SODIUM 100 MG CAP PO SCH (09:54)
[2018-10-31] MEDS: LORATADINE 10 MG TAB PO SCH (09:54)
[2018-10-31] MEDS: ASCORBIC ACID 500 MG TAB PO SCH (09:54)
[2018-10-31] MEDS: PREGABALIN 100 MG CAP PO SCH (09:57)
[2018-10-31 15:31] VITALS: BP 119/66; PULSE 78; RESP 19
== END 2018-10-31 16:40 | disposition home health service (06) | DRG 517 ==
LOC: EDSTATUS 04-25 10:00 → REC 10-29 05:24 → EDSTATUS 10-29 10:00 → MS1 10-29 15:51
PROVIDERS: ADMIT Orthopaedic Surgery; ATTEND Orthopaedic Surgery
PROC: 4A11X4G Monitoring of Peripheral Nervous Electrical Activity, Intraoperative, External Approach (ICD-10-PCS; 2018-10-29)
PROC: 01NB0ZZ Release Lumbar Nerve, Open Approach (ICD-10-PCS; principal; 2018-10-29 07:00)
DX: M48.061 Spinal stenosis, lumbar region without neurogenic claudication (principal); M43.17 Spondylolisthesis, lumbosacral region; E78.5 Hyperlipidemia, unspecified; J45.909 Unspecified asthma, uncomplicated; I10 Essential (primary) hypertension; K21.9 Gastro-esophageal reflux disease without esophagitis; E66.9 Obesity, unspecified; Z68.34 Body mass index [BMI] 34.0-34.9, adult
CPT/HCPCS: 72100; 80048; 81001; 85014; 85018; 85610; 85730; 86850; 86900; 86901; 86920; 87086; 88304; 88311; 97116; 97161; 97530; J0690; J1100; J1170; J1644; J2270; J2370; J2405; J2710; J3010; J7042

== ENCOUNTER 2018-07-10 11:19 | Day surgery (SDC) | END 2018-07-10 15:50 | disposition home or self-care (01) ==